=== PATIENT | female | born 1965 | race Caucasian/White ===

== ENCOUNTER 2020-08-22 06:50 | Day surgery (SDC) | payer OTHER ==
[~2020-08-22] VITALS: Ht 157.5 cm; Wt 88.9 kg
[2020-08-22 08:41] VITALS: BP 133/58
[2020-08-22 12:12] VITALS: BP 117/76
== END 2020-08-22 12:05 ==
LOC: DS 06:50 → OR 10:00 → DS 12:05
PROVIDERS: ATTEND Internal Medicine Gastroenterology
DX: R10.13 Epigastric pain (principal); K29.80 Duodenitis without bleeding; K27.9 Peptic ulcer, site unspecified, unspecified as acute or chronic, without hemorrhage or perforation
CPT/HCPCS: 43235; J1200; J1610; J2250; J2310; J3010; J3490